=== PATIENT | female | born 1985 | race Caucasian/White ===

== ENCOUNTER 2017-04-12 11:09 | Outpatient (CLI) | payer OTHER ==
--- OUTSIDE RECORDS SUMMARY | 2017-04-12 11:17 | XMS ---
:1985 Author Organization [facility] Care Team Providers Name Role Phone MELIA CHAU Unavailable Unavailable KANDIMELIA Unavailable Unavailable LAURA CHRISTIANSON Unavailable Unavailable SAMMY, LAURA Unavailable Unavailable Crosley, Ana Unavailable Unavailable Crosley, Ana Unavailable Unavailable Crosley, Ana Unavailable Unavailable Crosley, Ana Unavailable Unavailable Crosley, Ana Unavailable Unavailable Crosley, Ana Unavailable Unavailable Crosley, Ana Unavailable Unavailable Crosley, Ana Unavailable Unavailable ESQUEDA, BALA Unavailable Unavailable KEEN, YUMIKO Unavailable Unavailable KEEN, YUMIKO Unavailable Unavailable KEEN, YUMIKO Unavailable Unavailable KEEN, YUMIKO Unavailable Unavailable KEEN, YUMIKO Unavailable Unavailable KEEN, YUMIKO Unavailable Unavailable KEEN, YUMIKO Unavailable Unavailable KEEN, YUMIKO Unavailable Unavailable GIOVANNA, LACIE Unavailable Unavailable GIOVANNA, LACIE Unavailable Unavailable LU, LUPE Unavailable Unavailable LU, LUPE Unavailable Unavailable LU, LUPE Unavailable Unavailable LU, LUPE Unavailable Unavailable LU, LUPE Unavailable Unavailable LU, LUPE Unavailable Unavailable LU, LUPE Unavailable Unavailable LU, LUPE Unavailable Unavailable LU, LUPE Unavailable Unavailable LU, LUPE Unavailable Unavailable Debmaribel, Zenebe Unavailable Unavailable Saul, [place] Unavailable Unavailable Hughes, [place] Unavailable Unavailable Encounters Encounter Providers Location Date Indications Data Source(s) Emergency Dept Attender: LACIE 02/21/2016 NGOC HEREDIA MD 09:19:00 PM CDT - 02/21/2016 11:43:00 PM CDT Outpatient Attender: LUPE 02/18/2014 NGOC LEIGH MD 07:50:00 AM CDT - 02/18/2014 07:50:00 AM CDT Inpatient Attender: Arlette 02/03/2014 NGOC Hamlin MD 04:45:00 PM CDT - 02/06/2014 03:10:00 PM CDT Emergency Dept Attender: LAURA 02/03/2014 NGOC CHRISTIANSON MD 03:23:00 AM CDT - 02/03/2014 06:20:00 AM CDT Emergency Dept Attender: Camille 12/31/2013 NGOC Hughes MD 08:12:00 PM CDT - 12/31/2013 12:00:00 AM CDT Federally Qualified Attender: BALA 08/12/2013 [facility] ESQUEDA HOTEL DINING ROOM CASHIER 09:05:44 AM CREEL SELECTOR - 08/12/2013 10:31:31 AM [facility] Federally Qualified Attender: Ana 04/01/2013 [facility] Mayraivon ANNY 01:42:08 PM CDT - 04/01/2013 04:18:30 PM CDT Emergency Dept Attender: MELIA 05/23/2011 NGOC CHAU MD 10:15:00 PM [facility]EL SELECTOR - 05/24/2011 02:10:00 AM CREEL SELECTOR Federally Qualified 11/09/2010 [facility] 02:30:00 PM CDT Federally Qualified Attender: YUMIKO 11/02/2010 [facility] MUSA SHIRLEY 09:10:00 AM CDT Medications Medication Brand Start Product Dose Route Administrative Pharmacy Status Indications Reaction Data Name Date Form Instructions Instructions Source(s) 0.75 % [facility] 2013 Not 12:00: Speci 00 AM fied CREEL SELECTOR Insurance Providers Payer name Policy type / Policy ID Covered Covered libertarian's Policy Plan Coverage type libertarian ID relationship to [employer] Information ont[employer] Medicare [id number] 11_IN_1 Medicare [id number] 12_IN_1 Medicaid [id number] 12_IN_1 Medicaid [id number] 5_IN_1 Medicare NOT_VALID_[id number] Medicare NOT_VALID_[id number] Medicare NOT_VALID_[id number] Medicare NOT_VALID_[id number] Medicare NOT_VALID_[id number] Medicaid NOT_[id number] 2_IN_1 Self Pay NOT_VALID_[id number] Problems, Conditions, and Diagnoses Code Display Name Description Effective Dates Data Source(s) V15.89 OTHER SPECIFIED HX-HEALTH HAZARDS NEC 08/12/2013 [facility] PERSONAL HISTORY 09:05:44 AM CREEL SELECTOR PRESENTING HAZARDS TO HEALTH 278.01 MORBID OBESITY MORBID OBESITY 08/12/2013 [facility] 09:05:44 AM CREEL SELECTOR 796.2 ELEVATED BLOOD PRESSURE ELEV BL PRES W/O 08/12/2013 [facility] READING WITHOUT HYPERTN 09:05:44 AM [facility] SELECTOR DIAGNOSIS OF HYPERTENSION V74.5 SCREENING EXAMINATION SCREEN FOR VENERAL DIS 08/12/2013 [facility] FOR VENEREAL DISEASE 09:05:44 AM [facility]EL SELECTOR V72.31 ROUTINE GYNECOLOGICAL ROUTINE ROUTE SALES TRAINEE 08/12/2013 [facility] EXAMINATION EXAMINATION 09:05:44 AM CREEL SELECTOR V72.31 ROUTINE GYNECOLOGICAL ROUTINE ROUTE SALES TRAINEE 04/01/2013 [facility] EXAMINATION EXAMINATION 01:42:08 PM CDT V25.12 REMOVAL OF IUD REMOVAL OF IUD 04/01/2013 [facility] 01:42:08 PM CDT Z3A.15 15 weeks gestation of 15 weeks gestation of SDH Z68.43 Body mass index (BMI) Body mass index (BMI) SDH 50-59.9 , adult 50-59.9 , adult F17.200 Nicotine dependence, Nicotine dependence, SDH unspecified, unspecified, uncomplicated uncomplicated O99.332 Smoking (tobacco) Smoking (tobacco) SDH complicating , complicating second trimester , second trimester E66.01 Morbid (severe) obesity Morbid (severe) SDH due to excess calories obesity due to excess calories O99.212 Obesity complicating Obesity complicating SDH , second , second trimester trimester R10.11 Right upper quadrant Right upper quadrant SDH pain pain O26.892 Oth related Oth related SDH conditions, second conditions, second trimester trimester R09.1 Pleurisy Pleurisy SDH O99.89 Oth diseases and Oth diseases and SDH conditions compl conditions compl preg/chldbrth preg/chldbrth V85.43 BMI 50.0-59.9, ADULT BMI 50.0-59.9, ADULT SDH 305.1 NONDEPENDENT TOBACCO TOBACCO USE DISORDER SDH USE DISORDER 278.00 OBESITY UNSPECIFIED OBESITY NOS SDH 592.0 CALCULUS OF KIDNEY CALCULUS OF KIDNEY SDH 995.91 SEPSIS SEPSIS SDH 278.00 OBESITY UNSPECIFIED OBESITY NOS SDH 571.8 OTHER CHRONIC CHRONIC LIVER DIS NEC SDH NONALCOHOLIC LIVER DISEASE 288.60 LEUKOCYTOSIS LEUKOCYTOSIS NOS SDH UNSPECIFIED V85.43 BMI 50.0-59.9, ADULT BMI 50.0-59.9, ADULT SDH 591 HYDRONEPHROSIS HYDRONEPHROSIS SDH 592.1 CALCULUS OF URETER CALCULUS OF URETER SDH 590.10 ACUTE PYELONEPHRITIS AC PYELONEPHRITIS NOS SDH WITHOUT LESION OF RENAL MEDULLARY NECROSIS 038.9 UNSPECIFIED SEPTICEMIA SEPTICEMIA NOS SDH 599.0 URINARY TRACT INFECTION URIN TRACT INFECTION SDH SITE NOT SPECIFIED NOS 591 HYDRONEPHROSIS HYDRONEPHROSIS SDH 592.1 CALCULUS OF URETER CALCULUS OF URETER SDH E888.9 UNSPECIFIED ACCIDENTAL FALL NOS SDH FALL 845.00 UNSPECIFIED SITE OF SPRAIN OF ANKLE NOS SDH ANKLE SPRAIN 959.4 OTHER AND UNSPECIFIED HAND INJURY NOS SDH INJURY TO HAND EXCEPT FINGER 296.32 MAJOR DEPRESSIVE RECURR DEPR CUCC AFFECTIVE DISORDER PSYCHOS-MOD RECURRENT EPISODE MODERATE DEGREE 640.03 THREATENED THREATEN SDH ANTEPARTUM ABORT-ANTEPART 625.9 UNSPECIFIED SYMPTOM FEM GENITAL SYMPTOMS SDH ASSOCIATED WITH FEMALE NOS GENITAL ORGANS 646.63 ANTEPARTUM INFECTIONS SDH OF GENITOURINARY TRACT INFECTION-ANTEPARTUM 599.0 URINARY TRACT INFECTION URIN TRACT INFECTION SDH SITE NOT SPECIFIED NOS 305.1 NONDEPENDENT TOBACCO TOBACCO USE DISORDER SDH USE DISORDER 785.1 PALPITATIONS PALPITATIONS CUCC 296.20 MAJOR DEPRESSIVE DEPRESS CUCC AFFECTIVE DISORDER PSYCHOSIS-UNSPEC SINGLE EPISODE UNSPECIFIED DEGREE 611.71 MASTODYNIA MASTODYNIA CUCC 278.01 MORBID OBESITY MORBID OBESITY [facility] Surgeries/Procedures Procedure Date Indications Data Source(s) URETERAL CATHETERIZATION 02/18/2014 12:00:00 AM CDT SDH TU REMOV URETER OBSTRUCT 02/18/2014 12:00:00 AM CDT SDH CYSTOSCOPY NEC 02/03/2014 12:00:00 AM CDT SDH URETERAL CATHETERIZATION 02/03/2014 12:00:00 AM CDT SDH HIV-1/HIV-2 1 RESULT ANTBDY 08/12/2013 09:05:[address] [facility] CYTOPATH C/V AUTO FLUID REDO 08/12/2013 09:05:[address] [facility] Obtaining screen pap smear 08/12/2013 09:05:[address] [facility] ROUTINE VENIPUNCTURE 08/12/2013 09:05:[address] [facility] SYPHILIS TEST NON-TREP QUAL 08/12/2013 09:05:[address] [facility] CA screen;pelvic/breast exam 08/12/2013 09:05:[address] [facility] RUSSELL DNA DIR PROBE 08/12/2013 09:05:44 AM CREEL SELECTOR [facility] TRICHOMONAS VAGIN DIR PROBE 08/12/2013 09:05:44 AM CREEL SELECTOR [facility] SPECIMEN HANDLING OFFICE-LAB 08/12/2013 09:05:44 AM CREEL SELECTOR [facility] GLYCOSYLATED HEMOGLOBIN TEST 08/12/2013 09:05:44 AM CREEL SELECTOR [facility] OFFICE/OUTPATIENT VISIT EST 08/12/2013 09:05:[address] [facility] HERNANDEZ VAG DNA DIR PROBE 08/12/2013 09:05:44 AM CREEL SELECTOR [facility] N.GONORRHOEAE DNA AMP PROB 04/01/2013 01:42:08 PM CDT [facility] REMOVE INTRAUTERINE DEVICE 04/01/2013 01:42:08 PM CDT [facility] URINALYSIS NONAUTO W/O SCOPE 04/01/2013 01:42:08 PM CDT [facility] URINE TEST 04/01/2013 01:42:08 PM CDT [facility] CHYLMD TRACH DNA AMP PROBE 04/01/2013 01:42:08 PM CDT [facility] SPECIMEN HANDLING OFFICE-LAB 04/01/2013 01:42:08 PM CDT [facility] OFFICE/OUTPATIENT VISIT NEW 04/01/2013 01:42:08 PM CDT [facility] PSY DX INTERVIEW 11/09/2010 12:00:00 AM CDT [facility] URINE TEST 11/02/2010 12:00:00 AM CDT [facility] OFFICE/OUTPATIENT VISIT NEW 11/02/2010 12:00:00 AM CDT [facility] Results [id number] 04/01/2013 05:01:00 PM CDT [facility] Name Value Range Interpretation Code Data Source(s) CHLAMYDIA TRACHOMATIS NOT DETECTED NOT DETECTED Normal (applies to [facility] DNA, SDA non-numeric results) NEISSERIA GONORRHOEAE NOT DETECTED NOT DETECTED Normal (applies to [facility] DNA, SDA non-numeric results) [id number] SEE NOTE [facility] Procedure Vital Signs [id number] 09/04/2013 05:30:12 AM [facility] SELECTOR Name Value Range Interpretation Code Data Source(s) Respiration Rate 16 [/min] [facility] Body Temperature 98.3 [degF] [facility] Heart rate 85 [/min] [facility] Oxygen saturation in Arterial 99 null [facility] blood by Pulse oximetry Pain on a scale of 1-10 null 1 [facility] Diastolic blood 74 mm[Hg] [facility] pressure--sitting Systolic blood 141 mm[Hg] [facility] pressure--sitting Body mass index (BMI) [Ratio] 56.27 null [facility] Body height Measured 65.35 [inches] [facility] Body weight Measured 341.80 [lbs] [facility] [id number] 06/21/2013 05:40:43 AM [facility] SELECTOR Name Value Range Interpretation Code Data Source(s) Heart rate 81 [/min] [facility] Diastolic blood 87 mm[Hg] [facility] pressure--sitting Systolic blood 124 mm[Hg] [facility] pressure--sitting Body mass index (BMI) [Ratio] 54.83 null [facility] Body height Measured 65.00 [inches] [facility] Body weight Measured 329.50 [lbs] [facility]
== END 2017-04-12 11:10 | disposition home or self-care (01) ==
LOC: DTY/OP 11:09
PROVIDERS: ATTEND Specialist
DX: Z01.818 Encounter for other preprocedural examination (principal); E66.01 Morbid (severe) obesity due to excess calories
CPT/HCPCS: 97802

== ENCOUNTER 2017-06-05 11:36 | Outpatient (CLI) | payer OTHER | END 2017-06-05 11:37 | disposition home or self-care (01) | LOC: DTY/OP 11:36 | PROVIDERS: ATTEND Specialist | DX: Z01.818 Encounter for other preprocedural examination (principal); E66.01 Morbid (severe) obesity due to excess calories | CPT/HCPCS: 97802 ==

== ENCOUNTER 2017-08-03 12:00 | Inpatient (IN) | payer MEDICARE, MEDICAID ==
--- NOTE | 2017-08-02 14:01 | HP ---
HISTORY OF PRESENT ILLNESS: Kriss Schmidt is a 31-year-old female, 5 foot 4 inches, 64 inches tall, 366 pounds, 62 BMI, 4, para 4 who I saw earlier this year for laparoscopic appendectomy. Carol bruce has been interested in weight loss for sometime and think that she had let down until she realized we had a bariatric program. She attended our recent seminar accompanied by her dad. Her is supportive somewhat in her bariatric efforts. Patient has symptoms of sleep apnea. She has low back pain with right leg radiation and arthralgias in hips and ankles. She hopes to lose weight and have a more active lifestyle, live longer for children and grandchildren. She is a 4, para 4. W yojana has been in the low 200s in high school, but gained weight once she began having children at 19 years of age. She has attended our seminar and is interested in laparoscopic sleeve gastrectomy. S he understands the risks and benefits and questions have been answered. She has tried different weig ht loss efforts, been unsuccessful for durable weight loss and from talking to her, I can tell that s he needs to discuss with dietary, Odalis, healthy weight management and food consumption and food c jo. Patient is interested in a better lifestyle and to improve her health. ALLERGIES: None. TOBACCO: Socially, rarely. Alcohol, socially rarely. MEDICATIONS: None routinely. PAST SURGICAL HISTORY: Laparoscopic appendectomy. PAST MEDICAL HISTORY: Symptoms of sleep apnea, never has had a sleep study, arthralgias, low back pa in, and stress urinary incontinence. She does not have problems with reflux. She has had problems w ith depression, has tried medications, but does not like how they feel and she does not take them. PAST SURGICAL HISTORY: Laparoscopic cholecystectomy in 2011, urolithiasis 2013, laparoscopic appende ctomy in 12/2016. REVIEW OF SYSTEMS: Ten point noncontributory. PHYSICAL EXAMINATION: VITAL SIGNS: Height 5 foot 4 inches, 366 pounds, 62, BMI, 135/75, 83, 98.6 degrees. HEAD, EYES, EARS, NOSE, AND THROAT: Unremarkable. LUNGS: Clear to auscultation. CARDIAC: Regular rate and rhythm without murmur or gallop. ABDOMEN: Soft, obese, nontender. EXTREMITIES: Unremarkable. ASSESSMENT AND PLAN: 1. Morbid obesity. I have encouraged her to have 25-50 pound weight loss preoperatively. We will a rrange for her to see, Odalis, our dietitian, regarding food choices to help her on this weight los s effort. I encouraged her to be ambulatory. She will need to see nuclear medicine officer required by Medicare or Medicaid patients as well as a dietitian for preoperative sleeve, dietary instructions and baseli ne laboratories as well as a psychologist. We will arrange these visits. She understands the risks and benefits associated with surgery and consents. 2. Sleep apnea symptoms without formal sleep study. 3. Arthralgias. 4. Low back pain with right leg sciatica. 5. History of depression.
--- NOTE | 2017-08-03 10:34 | HP ---
HISTORY AND PHYSICAL ADDENDUM (Addendum to history and physical #[id number], dictated 03/28/2017). HISTORY OF PRESENT ILLNESS: Kriss Schmidt is a 31-year-old female patient, morbidly obese, initially pr esenting 5 foot 4, 366 pounds, 62 BMI and after preoperative workup today on this preoperative visit 347 pounds, 59, BMI. Total weight loss preoperatively 8%, total body weight loss representing 19-1/2 pounds. The patient has experienced a viral illness that has been passed around in her family, mostly with na usea and diarrhea and this is resolving. She is scheduled for surgery in the next 5 days. LABORATORY AND X-RAY FINDINGS: Preoperative lab assessment reveals hemoglobin 11.8, white count 12, platelet count 313,000. Cholesterol 184, triglycerides 138. Cardiac risk factor 2.33, well below th e 3.22 threshold. Iron level lower limits of normal at 37 (37-145), renal function, normal liver fun ction tests normal, thyroid function normal with normal TSH and T3 uptake, vitamin B12 normal at 472, folic acid normal at 11, ferritin level normal at 40, vitamin D is slightly low at 16, and she has s tarted replacement. Hemoglobin A1c is 6.5. All labs obtained 06/22/2017 H. pylori was positive and she was treated with H. pylori treatment regimen for 2 weeks which she has completed, vitamin B1 is 84, lower limbs normal (70-180). Patient has reviewed the consent in the office and we have discussed the risk and benefits which she is well aware of. I saw the patient earlier 2016 for laparoscopic appendectomy and she expressed interest in surgical w eight loss. She attended originally as recent seminar accompanied by her dad. Her and mackenzie ferguson and other family members are very supportive in her bariatric efforts. Patient has symptoms of sle ep apnea, although never has had a sleep study. She has arthralgias, low back pain with right leg ra diation and hips and ankle pain related to weightbearing. She hopes to lose weight to have a more ac tive lifestyle, live longer for her children and grandchildren. She is a 4, para 4. Weight has been in the low 200 in high school, but gained weight once she began having children at 19 years of age. The patient has tried numerous different weight loss efforts without durable weight loss. S he has discussed extensively early on with Odalis healthy weight management and food choices and ac tivity levels and then subsequently discussed with Odalis changes in her diet expected after laparo scopic sleeve gastrectomy. ALLERGIES: None. TOBACCO: Socially, rarely. MEDICATIONS: None routinely. PAST SURGICAL HISTORY: Laparoscopic appendectomy. PAST MEDICAL HISTORY: As noted above, symptoms of sleep apnea without having had a sleep study in th e past, low back pain with some right leg radiation stress urinary incontinence, arthralgias. She do es not have significant problems with GERD. She has had problems with depression, has tried medicati ons, but does not like how they make her feel, thus stopped taking them. PAST SURGICAL HISTORY: Laparoscopic cholecystectomy in 2011, laparoscopic appendectomy 12/2016, urol ithiasis 2013. REVIEW OF SYSTEMS: Ten point noncontributory. Patient has had cardiac clearance with [facility] with a normal cardiac stress test and cleared without further cardiac workup. She is felt to be a good surgical candidate with minimal cardiac risk. She has attended our bariatric seminar a s noted above and met with Odalis for expected perioperative dietary changes and progression relate d to her laparoscopic sleeve gastrectomy. PHYSICAL EXAMINATION: VITAL SIGNS: Starting weight in 2017 was 366 pounds, 62, BMI, currently 347 pounds, 59 BMI, 5 foot 4 inches, 126/83, 102, 98.2 degrees. HEENT: Unremarkable. LUNGS: Clear to auscultation. CARDIAC: Regular rate and rhythm without murmur or gallop. ABDOMEN: Soft, nontender. EXTREMITIES: Unremarkable. ASSESSMENT AND PLAN: 1. Morbid obesity. Laparoscopic sleeve gastrectomy as discussed above. She is committed weight los s and dietary changes, lifestyle changes to make positive change in her life. She understands the ri sks and benefits discussed multiple times and questions answered. 2. Resolving viral illness. 3. Arthralgias. 4. Stress urinary incontinence. 5. Symptoms of sleep apnea. 6. Status post cardiac clearance with a cardiac stress test.
[2017-08-07] MEDS ORDERED: Heparin 5,000 UNITS/ML VIAL ONE (06:39)
[2017-08-07] MEDS ORDERED: Scopolamine 1.5 mg/72 hour Patch ONE (06:40)
[2017-08-07] MEDS ORDERED: Ketorolac Tromethamine 30 MG/ML VIAL ONE (06:40)
[2017-08-07] MEDS ORDERED: Bupivacaine 0.25% HCL 30 ML VIAL ONE (06:44)
[2017-08-07] MEDS ORDERED: Lidocaine 2% w/Epinephrine 1:200K 20 ML VIAL ONE (06:44)
[2017-08-07] MEDS ORDERED: cefOXitin 2 GM, Syringe 1 ML in Sterile Water 10 ML SLOW IVP SCH (06:45)
[2017-08-07] MEDS ORDERED: Lidocaine 1% w/Epinephrine 1:200K 30 ML VIAL ONE (06:54)
[2017-08-07] MEDS ORDERED: Midazolam HCl 2 mg/2 ml Vial ONE (06:55)
[2017-08-07] MEDS ORDERED: Famotidine/PF 20 mg/2ml Vial ONE (07:01)
[2017-08-07] MEDS ORDERED: Promethazine HCl 25 MG/ML VIAL ONE (07:02)
[2017-08-07 07:19] LABS: #Eosinphils 0.4 thou/uL (0.0-0.7); #Lymphocytes 3.4 thou/uL (1.20-3.40); #Monocytes 0.6 thou/uL (0.11-0.59); #Neutrophils 6.8 thou/uL (1.40-6.50); %Basophils 0.4 % (0.0-1.0); %Eosinophils 3.8 % (0.0-10.0); %Lymphocytes 30.5 % (21.0-51.0); %Monocytes 5.5 % (0.0-10.0); %Neutrophils 59.8 % (42.0-75.0); Hemoglobin 11.5 g/dL (12.0-16.0); Mean Corpuscular HGB CONC 31.8 g/dL (32.0-36.0); Mean Corpuscular Hemoglobin 26.4 pg (27.0-31.0); Mean Platelet Volume 8.1 fL (7.4-10.4); Platelet Count 307 thou/uL (130-400); RBC Distribution Width 14.9 % (11.5-14.5); Red Blood Cell (RBC) Count 4.35 mill/uL (4.20-5.40); White Blood Cell (WBC) Count 11.3 thou/uL (4.8-10.8)
[2017-08-07] MEDS ORDERED: Fentanyl 100 MCG/2 ML VIAL ONE ×2 (07:22→10:28)
[2017-08-07 07:32] LABS: Anion Gap 9 mmol/L (10-20); BUN (Urea Nitrogen) 9 mg/dL (7.0-18.7); Calc. Creatinine Clearance 314 mL/min (70-130); Calcium 8.9 mg/dL (7.8-10.44); Carbon Dioxide 27 mmol/L (22-29); Chloride 107 mmol/L (98-107); Estimated GFR-MDRD Greater than 90; Glucose 113 mg/dL (70-105); Potassium 3.3 mmol/L (3.5-5.1); Sodium 140 mmol/L (136-145)
[2017-08-07] MEDS ORDERED: Promethazine HCl 25 MG/ML VIAL IM PRN (08:10)
[2017-08-07] MEDS ORDERED: Promethazine HCl 25 MG/ML VIAL SLOW IVP PRN (08:10)
[2017-08-07] MEDS ORDERED: Meperidine HCl/PF 25 MG/ML VIAL SLOW IVP PRN (08:10)
[2017-08-07] MEDS ORDERED: Morphine Sulfate 2 MG/ML SYRINGE SLOW IVP PRN (08:10)
[2017-08-07] MEDS ORDERED: Ondansetron HCl/PF 4 MG/2 ML Vial IVP PRN ×2 (08:10→09:09)
[2017-08-07] MEDS ORDERED: HYDROmorphone 2 MG/ML VIAL SLOW IVP PRN (08:10)
[2017-08-07] MEDS ORDERED: Hydrocodone-Acetamin 15 ML UDCUP PO PRN (09:09)
[2017-08-07] MEDS ORDERED: Dextrose 50% Abboject 50 ML SYRINGE SLOW IVP PRN (09:09)
[2017-08-07] MEDS ORDERED: diphenhydrAMINE 50 MG/ML VIAL IVP PRN (09:09)
[2017-08-07] MEDS ORDERED: hydrALAZINE 20 MG/ML VIAL SLOW IVP PRN (09:09)
[2017-08-07] MEDS ORDERED: Dextrose 5% in Water 1,000 ML IV PRN (09:09)
[2017-08-07] MEDS ORDERED: Ondansetron ODT 4 MG TAB PO PRN (09:11)
[2017-08-07] MEDS ORDERED: Ondansetron ODT 8 MG TAB SL PRN (09:11)
[2017-08-07] MEDS ORDERED: Ondansetron ODT 8 MG TAB PO PRN (09:11)
[2017-08-07] MEDS ORDERED: Ondansetron ORAL SOLN. 4 MG/5 ML UDCUP PO PRN ×2 (09:11)
[2017-08-07] MEDS ORDERED: Morphine 2 MG/ML SYRINGE SLOW IVP PRN ×3 (09:28→09:45)
[2017-08-07] MEDS ORDERED: Scopolamine 1.5 mg/72 hour Patch TD SCH (10:00)
--- NOTE | 2017-08-07 12:19 | OP ---
DATE OF PROCEDURE: 08/07/2017 PREOPERATIVE DIAGNOSES: Morbid obesity, preoperative 366 pounds, 62 body mass index and just prior t o surgery preoperative visit 347 pounds, 59 body mass index. Symptoms of sleep apnea without sleep study, arthralgias. . PROCEDURE: Laparoscopic sleeve gastrectomy, 36 Swedish bougie, staple line within 4-5 cm pylorus, com pletion endoscopy, clip application of the staple line for hemostasis. Completion upper endoscopy. SURGEON: Dr. Crow Kiran ANESTHESIA: General. Local 0.25% Marcaine with epinephrine 60 mL. PROCEDURE IN DETAIL: The patient was taken to the operating room where under general anesthesia, mercedes gastric tube was placed. Abdomen was prepared with ChloraPrep, draped in routine fashion. Local ane sthetic infiltrated into skin and subcutaneous tissue about all port sites. Supraumbilical midline i ncision made transversely and pneumoperitoneum to 15 mmHg obtained with the Veress needle, replacing it with a 5 port. Bilateral subcostal midclavicular incisions made and 15 mm port placed on the left and a 12 mm port placed on the right. Bilateral far lateral subcostal incision made and 5 ports cammie opal. Subxiphoid incision made and under direct laparoscopic visualization, a Lina liver retract or inserted and left lobe of the liver reflected anteriorly. The patient's liver was small and , grossly abdominal cavity was normal. Gastrocolic ligament taken down with the LigaSure beginning a t the distal greater curvature and advancing up towards the angle of His, taking care to avoid injury to the spleen. The stomach was mobilized posteriorly and distally to within 5 cm to 4.5 cm of the p ylorus. The gastric tube removed and under laparoscopic visualization, a 36 Swedish bougie placed allyssa ng the lesser curvature proper position and the initial staple line green load AMBER Endo laparoscopic stapler inserted and initial fire across the pylorus performed and the next fire using a gold stapler , then serial fires with the blue stapler. Care was taken to avoid encroaching on the incisura leavi ng adequate space and care was taken to avoid the gastroesophageal junction completing the staple roberto e under direct laparoscopic visualization and then removing the stomach through the 15 mm port site l eft upper quadrant and without spillage and then this fascia approximated with [id number] suture of 0 Vicryl and GraNee needle under laparoscopic visualization. The staple line was irrigated and i nspected and clips applied throughout for good hemostasis. Good hemostasis noted. Completion endosc opy performed by myself with endoscope placed per os under direct visualization and air insufflation passed throughout the esophagus and the stomach to the pylorus without restrictions and without bleed ing. Scope withdrawn noting normal sleeve findings without bleeding and esophagus, GE junction was n ormal. At this point, I then returned to the operative field and operative field irrigated and irrig ant evacuated. Good hemostasis ensured. Irrigant evacuated and liver retractor removed and pneumope ritoneum evacuated. All instruments removed and all skin incisions approximated with interrupted sub dermal 4-0 Monocryl and DermaGlue applied.
[2017-08-07] MEDS: Ketorolac Tromethamine 30 MG/ML VIAL IVP SCH ×2 (13:46→17:25)
[2017-08-07] MEDS ORDERED: PROPOFOL 200 MG/20 ML VIAL ONE (13:53)
[2017-08-07] MEDS ORDERED: Metoclopramide HCl 10 MG/2 ML VIAL ONE (13:53)
[2017-08-07] MEDS ORDERED: Ondansetron HCl/PF 4 MG/2 ML Vial ONE (13:53)
[2017-08-07] MEDS ORDERED: Lidocaine 1% PF 5 ML VIAL ONE (13:53)
[2017-08-07] MEDS ORDERED: Dexamethasone 20 MG/5 ML VIAL ONE (13:53)
[2017-08-07] MEDS ORDERED: Glycopyrrolate 0.2 MG/ML 5 ML SYRINGE ONE (13:53)
[2017-08-07] MEDS: 1/2 NS w/KCL 20 mEq 1,000 ML IV SCH ×3 (14:39→21:49)
[2017-08-07 17:43] VITALS: BMI 57.6
[2017-08-07] MEDS ORDERED: Enoxaparin Sodium 40 MG/0.4 ML SYRINGE SC SCH (21:00)
[2017-08-08] MEDS: Ketorolac Tromethamine 30 MG/ML VIAL IVP SCH ×2 (00:25→06:28)
[2017-08-08 04:38] LABS: #Lymphocytes 2.7 thou/uL (1.20-3.40); #Monocytes 0.7 thou/uL (0.11-0.59); #Neutrophils 9.9 thou/uL (1.40-6.50); %Basophils 0.2 % (0.0-1.0); %Eosinophils 0.3 % (0.0-10.0); %Lymphocytes 20.5 % (21.0-51.0); %Monocytes 5.3 % (0.0-10.0); %Neutrophils 73.8 % (42.0-75.0); Hemoglobin 10.4 g/dL (12.0-16.0); Mean Corpuscular HGB CONC 32.1 g/dL (32.0-36.0); Mean Corpuscular Hemoglobin 26.8 pg (27.0-31.0); Mean Corpuscular Volume 83.4 fl (81.0-99.0); Mean Platelet Volume 8.2 fL (7.4-10.4); Platelet Count 293 thou/uL (130-400); Red Blood Cell (RBC) Count 3.87 mill/uL (4.20-5.40); White Blood Cell (WBC) Count 13.4 thou/uL (4.8-10.8)
[2017-08-08 05:04] LABS: Anion Gap 9 mmol/L (10-20); BUN (Urea Nitrogen) 7 mg/dL (7.0-18.7); Calc. Creatinine Clearance 334 mL/min (70-130); Calcium 8.4 mg/dL (7.8-10.44); Carbon Dioxide 28 mmol/L (22-29); Chloride 107 mmol/L (98-107); Estimated GFR-MDRD Greater than 90; Glucose 117 mg/dL (70-105); Potassium 3.8 mmol/L (3.5-5.1); Sodium 140 mmol/L (136-145)
--- NOTE | 2017-08-08 08:24 | RAD ---
ESOPHOGRAM: History: Obesity, bariatric surgery. FINDINGS/IMPRESSION: Single column contrast evaluation shows post-operative changes consistent with recent gastric sleeve procedure. There is no evidence of obstruction or leak. POS: RUPAL
[2017-08-08] MEDS ORDERED: Pantoprazole 40 MG VIAL IVP SCH (09:00)
[2017-08-08] MEDS ORDERED: Acetaminophen 500 MG TAB PO PRN (09:05)
[2017-08-08 09:13] VITALS: BP 107/77; TEMP 97.7
--- NOTE | 2017-08-08 09:21 | PRG ---
DATE OF SERVICE: 08/08/2017 The patient is doing well post-sleeve gastrectomy, hemoglobin is stable. Vital signs are normal. Sw allow study this morning is normal. She has tolerated liquids, sips and chips yesterday and liquids this morning. She has minimal pain. She took 1 dose of morphine last night, otherwise only complain s of soreness. PHYSICAL EXAMINATION: LUNGS: Clear to auscultation. CARDIAC: Regular rate and rhythm without murmur or gallop. ABDOMEN: Soft, nontender. Surgical wounds look good. No wound problems. ASSESSMENT AND PLAN: Doing well post-sleeve gastrectomy. PLAN: Discharge home later today. She is instructed to take Lortab elixir as needed, otherwise just take Tylenol [id number].
--- NOTE | 2017-08-08 09:38 | DIS ---
DATE OF ADMISSION: 08/07/2017 DATE OF DISCHARGE: 08/08/2017 DISCHARGE DIAGNOSES: Morbid obesity with symptoms of sleep apnea without prior sleep study, arthralg ias. DISCHARGE MEDICATIONS: [id number]-rlr-elvxcpt Tylenol as needed for pain, ibuprofen if needed, Lortab elix ir if needed. She will resume vitamins and protein supplements in the next 3-4 days as tolerated. HISTORY: A 32-year-old female with the above comorbidities and morbid obesity, 5 foot 5, 366 pounds, 62 BMI initial encounter, 59 BMI, 347 pounds subsequent encounter. Undergone laparoscopic sleeve ga strectomy. Postoperatively, convalesced, tolerated liquids with normal swallow study. Discharged ho tx with followup in 1-2 weeks. Diet and activity as tolerated. No lifting restrictions.
[2017-08-08] MEDS ORDERED: GASTROGRAFIN 30 ML BOT ONE (12:38)
== END 2017-08-08 12:42 | disposition home or self-care (01) | DRG 621 ==
LOC: SURG A 08-07 05:51 → SURG B 08-07 09:34
PROVIDERS: ADMIT Specialist; ATTEND Specialist
PROC: 0DB64Z3 Excision of Stomach, Percutaneous Endoscopic Approach, Vertical (ICD-10-PCS; principal; 2017-08-07)
PROC: 0DJ08ZZ Inspection of Upper Intestinal Tract, Via Natural or Artificial Opening Endoscopic (ICD-10-PCS; 2017-08-07)
DX: E66.01 Morbid (severe) obesity due to excess calories (principal); G47.30 Sleep apnea, unspecified; M25.50 Pain in unspecified joint; M54.41 Lumbago with sciatica, right side; R32 Unspecified urinary incontinence; Z68.44 Body mass index [BMI] 60.0-69.9, adult
CPT/HCPCS: 36415; 74241; 80048; 85025; 88307; 88312; A4216; C9113; J0131; J0694; J1100; J1200; J1644; J1650; J1885; J1956; J2001; J2250; J2270; J2405; J2550; J2704; J2765; J3010; S0020; S0028

== ENCOUNTER 2018-03-20 12:33 | Emergency (ER) | payer MEDICARE, MEDICAID ==
[~2018-03-20 12:33] MED LIST: ISOVUE-370 76%-LOCM 1 ML ONE
--- NOTE | 2018-03-20 12:58 | CT ---
CT CERVICAL SPINE: Date: 03-20-18 Provided Clinical History: Trauma. FINDINGS: There is no evidence for fracture or traumatic subluxation. No prevertebral soft tissue swelling appa rent. The visualized lung apices appear clear. IMPRESSION: No evidence for fracture or traumatic subluxation. POS: RUPAL
--- NOTE | 2018-03-20 12:58 | CT ---
CT BRAIN WITHOUT CONTRAST: Date: 03/20/18 HISTORY: Level II trauma, head injury. Pain in left side of head. FINDINGS: No evidence of acute infarct, hemorrhage, midline shift, or abnormal extra-axial fluid collections ar e seen. The ventricular size is normal and the basilar cisterns are patent. The bony calvarium is int act. The visualized paranasal sinuses and mastoid air cells are well aerated. IMPRESSION: No CT evidence of acute intracranial process. Discussed over the telephone with ER physician, Dr. Sylvain Mazariegos, at 1252 hours. CODE CR.
--- NOTE | 2018-03-20 13:34 | CT ---
CT THORAX WITH IV CONTRAST CT ABDOMEN AND PELVIS WITH IV CONTRAST CT THORACIC AND LUMBAR SPINE: Date: 03/20/18 HISTORY: Trauma. FINDINGS: CT THORAX: There is an approximately 4.0 mm pleural based nodular density in the most inferior aspect of the rig ht upper lobe at the level of the minor fissure. Lungs are otherwise clear. There is no pleural effus ion or pneumothorax seen. There are no findings to suggest an aortic injury. Mediastinal structures have a normal CT appearance . No fracture is identified. CT ABDOMEN/PELVIS: There are postsurgical changes of the stomach. Post cholecystectomy changes are noted. The liver, spleen, pancreas, bilateral adrenal glands, abdominal aorta, left kidney, urinary bladder, and uterus demonstrate a grossly normal nonenhanced CT appearance. There is a nonobstructing, approximately 8-9 mm calculus in the inferior pole right kidney. The appendix is short in length, but there is a calcification within the appendix suggesting an appen dicolith. No fracture is identified. CT THORACIC/LUMBAR SPINE: There is a prominent hemangioma in the T4 vertebral body. Vertebral body heights are within normal li mits. A few scattered minimal degenerative changes are seen in the spine. No fracture or subluxation is seen involving the lumbar spine. IMPRESSION: 1. No acute findings are seen in the chest, abdomen, or pelvis. 2. Postsurgical changes related to cholecystectomy with postsurgical changes of the stomach. 3. Small dominant follicle left ovary versus small ovarian cyst. 4. Nonobstructing inferior pole right renal calculus. 5. Appendicolith. The appendix is normal in caliber. 6. No fracture or subluxation involving the thoracic or lumbar spine. Above findings discussed with Dr. Mazariegos in the emergency department on 03/20/18 at 1311 hours. CODE CR. POS: [facility]
== END 2018-03-20 13:24 | disposition home or self-care (01) ==
LOC: ERS 12:33
DX: S16.1XXA Strain of muscle, fascia and tendon at neck level, initial encounter (principal); S29.012A Strain of muscle and tendon of back wall of thorax, initial encounter; F41.9 Anxiety disorder, unspecified; F32.9 Major depressive disorder, single episode, unspecified; F17.210 Nicotine dependence, cigarettes, uncomplicated; V49.9XXA Car occupant (driver) (passenger) injured in unspecified traffic accident, initial encounter
CPT/HCPCS: 70450; 71260; 72125; 74177; G0390

== ENCOUNTER 2024-06-17 08:51 | Emergency (ER) | payer MEDICARE, OTHER ==
[2024-06-17 09:40] LABS: Bilirubin Negative (Negative); Blood, Urine 2+ (Negative); CAUTI Indications for Culture Dysuria,urgency,freq; Clarity Turbid (Clear); Glucose, Urine (Dipstick) Normal (Negative); Ketone, Urine Negative (Negative); Leukocyte 500 Leu/uL (Negative); Nitrite Negative (Negative); Protein, Urine (Dipstick) 30 mg/dL (Neg-Trace); RBC/HPF Greater than 50 HPF (0-3); Specific Gravity, Urine 1.012 (1.002-1.036); Squamous Epithelial 0-3 HPF (0-3); Urobilinogen Normal mg/dL (Less than 2)
[2024-06-17 09:41] LABS: Bacteria/HPF 1+ HPF (None Seen); Pregnancy Test - Urine (BHCG) Negative (Negative); Pregu Control Background? CLEAR/WHITE (CLR/WHITE); Pregu Control Bar Appear? YES (CONTROL BAR); Specific Gravity 1.012 (1.002-1.036)
[2024-06-17 09:42] LABS: Urine Culture Reflex Yes Yes
[2024-06-17] MEDS ORDERED: Ketorolac Tromethamine 30 MG (1 mL) VIAL ONE (10:37)
[2024-06-17] MEDS ORDERED: Acetaminophen 500 MG TAB ONE (10:38)
[2024-06-17] MEDS ORDERED: Sodium Chloride 0.9% 100 ML ONE (10:38)
[2024-06-17] MEDS ORDERED: cefTRIAXone (ROCEPHIN) 1 GM VIAL ONE (10:38)
[2024-06-17 11:02] LABS: #Basophils 0.03 10x3/uL (0.0-0.2); %Basophils 0.3 % (0.0-1.0); %Lymphocytes 11.9 % (21.0-51.0); %Monocytes 7.2 % (0.0-10.0); %Neutrophils 78.4 % (42.0-75.0); Hematocrit 38.3 % (36.0-47.0); Hemoglobin 12.5 g/dL (12.0-16.0); Mean Corpuscular HGB CONC 32.6 g/dL (32.0-36.0); Mean Corpuscular Hemoglobin 28.7 pg (27.0-31.0); Mean Corpuscular Volume 87.8 fL (78.0-98.0); Mean Platelet Volume 9.9 fL (7.4-10.4); Platelet Count 254 10x3/uL (130-400); RBC Distribution Width 14.2 % (11.5-14.5); Red Blood Cell (RBC) Count 4.36 mill/uL (4.20-5.40)
[2024-06-17 11:29] LABS: ALT (SGPT) 11 U/L (8-55); AST (SGOT) 18 U/L (5-34); Albumin 3.2 g/dL (3.5-5.0); Alkaline Phosphatase 72 U/L (40-110); Anion Gap 12 mmol/L (10-20); BUN (Urea Nitrogen) 8 mg/dL (7.0-18.7); Bilirubin, Total 0.8 mg/dL (0.2-1.2); Calc. Creatinine Clearance 0 mL/min (70-130); Calcium 8.6 mg/dL (7.8-10.44); Carbon Dioxide 25 mmol/L (22-29); Chloride 107 mmol/L (98-107); Estimated GFR 114; Globulin 3.5 g/dL (2.4-3.5); Glucose 105 mg/dL (70-105); Potassium 4.2 mmol/L (3.5-5.1); Protein, Total 6.7 g/dL (6.0-8.3); Sodium 140 mmol/L (136-145)
[2024-06-17] MEDS ORDERED: Iopamidol-370 76% 500 ML MDV (1 ML CHARGE) ONE (11:54)
[2024-06-17 12:03] LABS: Troponin I Less than 0.010 ng/mL (< 0.028)
== END 2024-06-17 13:00 | disposition home or self-care (01) ==
LOC: ERS 08:51
DX: N39.0 Urinary tract infection, site not specified (principal); F17.210 Nicotine dependence, cigarettes, uncomplicated; Z55.6 Problems related to health literacy
CPT/HCPCS: 71045; 74177; 80053; 81001; 81025; 84484; 85025; 87086; 87428; 93005; J0696; J1885; 96365; 96375